=== PATIENT | male | born 1985 | race Caucasian/White ===

== ENCOUNTER → 2017-12-01 | Outpatient (CLI) | payer OTHER | LOC: CIMAGING 15:08 | PROVIDERS: ATTEND Internal Medicine | DX: R10.30 Lower abdominal pain, unspecified (principal) | CPT/HCPCS: 76705-PO ==

== ENCOUNTER → 2017-12-07 | Outpatient (CLI) | payer OTHER | LOC: CIMAGING 10:08 | PROVIDERS: ATTEND Internal Medicine | DX: R10.30 Lower abdominal pain, unspecified (principal) | CPT/HCPCS: 76870-PO ==

== ENCOUNTER 2019-04-25 05:33 | Day surgery (SDC) | payer OTHER | END 2019-04-25 12:28 | disposition home or self-care (01) | LOC: FSGY 05:33 ==